=== PATIENT | female | born 1960 | race Caucasian/White ===

== ENCOUNTER 2024-08-09 08:05 | Emergency (ER) | payer OTHER ==
[~2024-08-09] VITALS: Ht 167.6 cm; Wt 72.4 kg
[2024-08-09 08:09] VITALS: TEMP 98.3
[2024-08-09 09:07] LABS: BASOPHILS % (AUTO) 0.4 % (0-1); EOSINOPHILS # (AUTO) 0.2 X10'3 (0-0.9); EOSINOPHILS % (AUTO) 3.1 % (0-6); HEMATOCRIT 38.6 % (35.0-45.0); HEMOGLOBIN 12.8 g/dl (12.0-16.0); LYMPHOCYTES # (AUTO) 0.8 X10'3 (1.1-4.8); LYMPHOCYTES % (AUTO) 15.7 % (21-51); MEAN CORPUSCULAR HEMOGLOBIN 30.7 PG (27.0-31.0); MEAN CORPUSCULAR VOLUME 92.8 FL (78-98); MEAN PLATELET VOLUME 8.8 FL (7.4-10.4); MONOCYTES # (AUTO) 0.4 X10'3 (0-0.9); MONOCYTES % (AUTO) 7.6 % (2-12); NEUTROPHILS # (AUTO) 3.7 X10'3 (1.8-7.7); NEUTROPHILS % (AUTO) 73.2 % (42-75); PLATELET COUNT 228 X10'3 (140-440); RED BLOOD COUNT 4.16 X10'6 (4.20-5.60); WHITE BLOOD COUNT 5.1 X10'3 (4.5-11.0)
[2024-08-09 09:19] LABS: APTT 25 SECONDS (22-32); D-DIMER 0.84 MG/L FEU (0-0.50)
[2024-08-09 09:22] LABS: ALANINE AMINOTRANSFERASE 25 U/L (12-78); ALBUMIN 3.4 G/DL (3.4-5.0); ALBUMIN/GLOBULIN RATIO 0.9 (1.1-1.5); ALKALINE PHOSPHATASE 81 IU/L (46-116); ANION GAP 7 (8-16); ASPARTATE AMINO TRANSFERASE 18 U/L (10-37); BILIRUBIN,TOTAL 0.7 MG/DL (0.1-1.0); BLOOD UREA NITROGEN 14 MG/DL (7-18); BUN/CREATININE RATIO 16.3 (10.0-20.0); CALCIUM 8.3 MG/DL (8.5-10.1); CHLORIDE 105 MMOL/L (99-107); CREATININE 0.86 MG/DL (0.40-0.90); GLUCOSE 99 MG/DL (70-104); POTASSIUM 4.1 MMOL/L (3.5-5.1); SODIUM 143 MMOL/L (135-145); TOTAL CARBON DIOXIDE 31.3 MMOL/L (24-32); TOTAL PROTEIN 7.2 G/DL (6.4-8.2); eCRCL 61 ML/MIN; eGFR 66 ML/MIN
[2024-08-09 09:34] LABS: THYROID STIMULATING HORMONE 2.93 ulU/ml (0.34-4.50)
[2024-08-09] MEDS ORDERED: AMOX-580 PO (10:02)
[2024-08-09] MEDS ORDERED: PRED20TA PO (10:02)
[2024-08-09] MEDS: amox tr/potassium clavulanate 875/125mg TAB PO ONE (10:05)
[2024-08-09] MEDS: predniSONE 20 mg tablet PO ONE (10:05)
[2024-08-09 10:19] VITALS: BP 128/71; PULSE 70; RESP 10; O2SAT 98
== END 2024-08-09 10:22 | disposition home or self-care (01) ==
LOC: ER 08:06
DX: J45.901 Unspecified asthma with (acute) exacerbation (principal); J01.90 Acute sinusitis, unspecified; E03.9 Hypothyroidism, unspecified; Z20.822 Contact with and (suspected) exposure to COVID-19
CPT/HCPCS: 36415; 71045; 80053; 83735; 84443; 85025; 85379; 85610; 85730; 87502; 87503; 87811; 93005; 99285; J7512